=== PATIENT | male | born 1960 | race Caucasian/White ===

== ENCOUNTER 2025-05-22 14:55 | Outpatient (CLI) | payer MEDICARE, SELFPAY ==
--- NOTE | 2025-05-22 15:03 | MR_ITS ---
WS: [id number] MRI LUMBAR SPINE NONCONTRAST HISTORY: LUMBOSACRAL RADICULOPATHY COMPARISON: None available. TECHNIQUE: Sagittal and axial multisequence imaging is submitted. 2 mm retrolisthesis of C3-4 and C5. Mild central cervical stenosis. Mild straightening and scoliosis of the lumbar spine. Disc spaces are narrowed and desiccated. No fractures or marrow edema. Conus terminates normally at L1-2 disc level. L1-L2: Mild facet joint arthritis. No significant foraminal stenosis. L2-L3: Mild diffuse annular disc bulging with osteophytic ridging and facet joint arthritis. Small amount of fluid in the facet joints. Disc bulging contacts the traversing L3 nerve roots. Mild central and subarticular recess stenosis. Moderate RIGHT and mild LEFT foraminal stenosis. L3-L4: Diffuse annular disc bulging with moderate LEFT paracentral disc protrusion. Disc protrusion extends into the LEFT foramen with effacement of fat. Disc also extends into the LEFT subarticular recess. Moderate ligamentum flavum and facet arthritis. Fluid in the facet joints. Moderate central stenosis and LEFT subarticular recess stenosis. Moderate LEFT foraminal stenosis due to osteophytes and disc protrusion and facet arthritis. Mild RIGHT foraminal stenosis. L4-L5: Diffuse disc bulging with osteophytic ridging, moderate facet joint arthritis and ligamentum flavum hypertrophy. Mild RIGHT and moderate LEFT foraminal stenosis due to disc osteophyte disease. L5-S1: Annular disc bulging with a central disc protrusion contacting the ventral thecal sac. The disc protrusion is slightly contacting the S1 nerve roots, RIGHT greater than LEFT. Disc bulging extends into the foramina bilaterally. Moderate to severe bilateral foraminal stenosis due to disc, osteophyte and facet arthritis.. Paravertebral soft tissues are negative. MR/MR lumbar spine wo con* [id number] IMPRESSION: 1. 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 2. Moderate size LEFT paracentral disc protrusion at L3-4 extending into the L EFT foramen. Disc protrusion extends into the LEFT subarticular recess. Moderat e central and LEFT subarticular recess stenosis. Moderate LEFT foraminal stenos is and mild RIGHT foraminal stenosis at L3-4. 3. Moderate RIGHT and mild LEFT foraminal stenosis at L2-3. There is mild disc contact on the traversing L3 nerve roots due to disc bulging. 4. Moderate LEFT and mild RIGHT foraminal stenosis at L4-5. 5. Moderate to severe bilateral foraminal stenosis at L5-S1 due to disc, osteo phyte and facet disease. 6. Central disc protrusion at L5-S1 contacts the S1 nerve roots, RIGHT greater than LEFT.
== END 2025-05-22 14:56 | disposition home or self-care (01) ==
LOC: RAD 14:57
PROVIDERS: PCP Family Medicine; Visit Provider Student in an Organized Health Care Education/Training Program
DX: M51.16 Intervertebral disc disorders with radiculopathy, lumbar region (principal); M48.061 Spinal stenosis, lumbar region without neurogenic claudication; M51.369 Other intervertebral disc degeneration, lumbar region without mention of lumbar back pain or lower extremity pain; M51.26 Other intervertebral disc displacement, lumbar region; M48.07 Spinal stenosis, lumbosacral region; M51.17 Intervertebral disc disorders with radiculopathy, lumbosacral region
CPT/HCPCS: 72148